=== PATIENT | female | born 1985 | race Caucasian/White ===

== ENCOUNTER 2017-08-12 09:55 | Emergency (ER) | payer SELFPAY ==
[2017-08-12 10:43] LABS: Basophils % (Auto) 0.5 % (0.0-1.8); Eosinophils % (Auto) 1.6 % (0.0-4.3); Hemoglobin 13.5 gm/dl (10.1-14.3); Mean Corpuscular HGB Conc 34 % (30-34); Mean Corpuscular Hemoglobin 30 pg (28-32); Mean Corpuscular Volume 89 fl (79-97); Platelet Count 160 K/mm3 (140-440); Red Cell Distribution Width 12.8 % (13.2-15.2); White Blood Count 9.7 K/mm3 (4.5-11.0)
[2017-08-12 19:37] LABS: Bilirubin,Urine NEG (Negative); Blood,Urine LG (Negative); Ketones,Urine NEG (Negative); Leukocyte Esterase,Urine MOD (Negative); Nitrite,Urine NEG (Negative); Urobilinogen,Urine < 2.0 mg/dL (<2.0)
[2017-08-12 19:38] LABS: RBC,Urine > 182.0 /HPF (0.0-6.0)
--- NOTE | 2017-08-12 21:05 | Emergency Department Report ---
ED Female HPI - General Chief complaint: Vaginal Bleeding Stated complaint: VAGINAL BLEEDING Time Seen by Provider: 08/12/17 20:53 Source: patient, RN notes reviewed Mode of arrival: Ambulatory Limitations: No Limitations - History of Present Illness Initial comments: This is a 32-year-old female, the patient is previously unknown to this provider , she reports that she is 3, para 2, last menstrual period is May 2016 , and she follows at a local outpatient clinic. Patient presents to the ER with a complaint of vaginal bleeding since August 10, she's been using 8 pads within the past 24 hours, denies irritative and obstructive urinary symptoms, apparently patient had an outpatient ultrasound done on August 10 which demonstrated no heart rate. Patient denies chest pain and shortness of breath. Her symptoms are constant, and do not have exacerbating or relieving factors. MD Complaint: vaginal bleeding, pelvic pain -: Gradual Location: suprapubic Severity: mild Quality: cramping Consistency: constant Improves with: none Worsens with: none Are you Now?: Yes Associated Symptoms: vaginal bleeding, abdominal pain - Related Data Sexually active: Yes Previous Rx's Medication Instructions Recorded Last Taken Type Misoprostol [Cytotec] 50 mcg PO Q6HR #2 tablet 08/12/17 Unknown Rx Allergies Allergy/AdvReac Type Severity Reaction Status Date / Time No Known Allergies Allergy Verified 08/12/17 10:14 ED Review of Systems ROS: Stated complaint: VAGINAL BLEEDING Other details as noted in HPI Constitutional: denies: fever Eyes: denies: vision change ENT: denies: epistaxis Respiratory: denies: cough Cardiovascular: denies: chest pain Gastrointestinal: denies: vomiting Genitourinary: abnormal menses. denies: dysuria Musculoskeletal: denies: back pain Skin: denies: lesions Neurological: denies: weakness Psychiatric: anxiety ED Past Medical Hx - Past Medical History Previous Medical History?: No - Surgical History Past Surgical History?: No - Social History Smoking Status: Former Smoker Substance Use Type: None - Medications Home Medications: Home Medications Medication Instructions Recorded Confirmed Last Taken Type Misoprostol [Cytotec] 50 mcg PO Q6HR #2 tablet 08/12/17 Unknown Rx ED Physical Exam - General Limitations: No Limitations General appearance: alert, in no apparent distress - Head Head exam: Present: atraumatic, normocephalic - Eye Eye exam: Present: normal appearance, EOMI. Absent: nystagmus - ENT ENT exam: Present: normal exam, normal orophraynx, mucous membranes moist, normal external ear exam - Neck Neck exam: Present: normal inspection, full ROM. Absent: tenderness, meningismus - Respiratory Respiratory exam: Present: normal lung sounds bilaterally. Absent: respiratory distress, wheezes, rales, rhonchi, stridor, chest wall tenderness, accessory muscle use, decreased breath sounds, prolonged expiratory - Cardiovascular Cardiovascular Exam: Present: regular rate, normal rhythm, normal heart sounds. Absent: bradycardia, tachycardia, irregular rhythm, systolic murmur, diastolic murmur, rubs, gallop - GI/Abdominal GI/Abdominal exam: Present: soft, normal bowel sounds. Absent: distended, tenderness, guarding, rebound, rigid, pulsatile mass - External exam: Present: normal external exam Speculum exam: Present: vaginal bleeding, other (products of conception noted coming through the cervix) Bi-manual exam: Present: normal bi-manual exam, uterine tenderness, other ( escorted by nurse dayne sage). Absent: adnexal tenderness, adnexal mass - Extremities Exam Extremities exam: Present: normal inspection, full ROM, normal capillary refill. Absent: tenderness, pedal edema, joint swelling - Back Exam Back exam: Present: normal inspection, full ROM. Absent: tenderness, CVA tenderness (R), CVA tenderness (L), muscle spasm, paraspinal tenderness, vertebral tenderness - Neurological Exam Neurological exam: Present: alert, oriented X3, normal gait, other (Extraocular movements intact. Tongue midline. No facial droop. Facial sensation intact to light touch in the V1, V2, V3 distribution bilaterally. 5 and 5 strength in 4 extremities.. Sensation is intact to light touch in 4 extremities.). Absent : motor sensory deficit - Psychiatric Psychiatric exam: Present: normal affect, normal mood - Skin Skin exam: Present: warm, dry, intact, normal color. Absent: rash ED Course Vital Signs 08/12/17 08/12/17 08/12/17 10:14 21:00 21:59 Temperature 99.6 F 98 F Pulse Rate 94 H 87 Respiratory 18 12 12 Rate Blood Pressure 111/72 Blood Pressure 115/62 [Left] O2 Sat by Pulse 99 Oximetry - Reevaluation(s) Reevaluation #1: 08/12/17 22:04 Differential diagnosis: Threatened miscarriage, inevitable miscarriage, retained products of conception Assessment and plan: 32-year-old female with vaginal bleeding, positive test, no intrauterine is identified on my transabdominal bedside ultrasound, found to be Rh+, patient has received a formal radiology transvaginal ultrasound, she is most likely splinting and miscarriage. We will reassess once her ultrasound has resulted. Reevaluation #2: 08/12/17 23:41 Patient remains hemodynamically stable, ultrasound demonstrates echogenic material, consistent with retained products of conception in the lower uterine segment and cervix. Viable intrauterine is not identified. Reevaluation #3: 08/12/17 23:49 The patient's case is presented to gynecology on-call, Dr. Espinosa, and he recommends Cytotec, 50 g for 2 doses. ED Medical Decision Making - Lab Data Result diagrams: 08/12/17 10:23 Critical care attestation.: If time is entered above; I have spent that time in minutes in the direct care of this critically ill patient, excluding procedure time. ED Disposition Clinical Impression: Miscarriage Disposition: DC-01 TO HOME OR SELFCARE Is pt being admited?: No Does the pt Need Aspirin: No Condition: Stable Instructions: Spontaneous Miscarriage (ED) Additional Instructions: Rest, and avoid heavy lifting. Avoid strenuous physical activity. Follow-up with a crop supervisor within 3-5 days, do not engage in sex until cleared by crop supervisor. Bleeding, cramping, tissue passage and clots are normal and expected, patient having an inevitable miscarriage/. Return to the ER right away with new pain, worsened pain, migration of pain, fevers, chills, lethargy, projectile vomiting, change in mental status, inability to tolerate liquid feeds. Take the medication as directed, this will assist and facilitate extrusion of products of conception. Descanse y evite levantar objetos pesados. Evite la actividad fsica extenuante. Seguimiento con un gineclogo dentro de 3-5 maravilla, no se involucran en el sexo hasta que sea aprobado por el gineclogo. Sangrado, calambres, paso de tejido y cogulos son normales y esperados, el paciente tiene un inevitable aborto / aborto. Regreso al ER de inmediato con dolor nuevo, dolor empeorado, migracin de dolor, fiebres, escalofros, letargo, vmitos de proyectiles, cambios en el estado mental, incapacidad para tolerar alimentos lquidos. Prescriptions: Misoprostol [Cytotec] 50 mcg PO Q6HR #2 tablet Referrals: PRIMARY CAREMD [Primary Care Provider] - 3-5 Days [facility] [Provider Group] - 3-5 Days [facility] [Provider Group] - 3-5 Days [facility] [Provider Group] - 3-5 Days
[2017-08-12 21:59] VITALS: BP 115/62
--- NOTE | 2017-08-12 23:08 | Ultrasound Report ---
FINAL REPORT PROCEDURE: US OB TRANSVAGINAL TECHNIQUE: Real-time transabdominal and transvaginal sonography of the uterus, placenta, amniotic fluid, adnexa, and fetus was performed with image documentation. Measurements were obtained to determine age/size. M-mode Doppler was used to document heartbeat. CPT 51221 and 21347 HISTORY: vag bleed COMPARISON: No prior studies are available for comparison. FINDINGS: Abnormal echogenic material is seen in the lower uterine segment and endocervical canal that may be due to retained products of conception. No viable IUP is seen. Fluid is seen in the lower cervical canal. Endometrial thickness is 1.2 cm in the fundus. Right ovary measures 2.9 x 1.6 x 2.1 cm. Left ovary measures 3.0 x 2.0 x 2.1 cm. Left ovary is a complex cyst measuring 1.7 cm. No free pelvic fluid is seen. No ectopic is seen. IMPRESSION: Probable in progress with retained products of conception in the lower uterine segment and cervix is seen. A viable IUP is not identified. Correlation with serial quantitative beta HCG levels is recommended.
--- NOTE | 2017-08-12 23:09 | Ultrasound Report ---
FINAL REPORT PROCEDURE: US OB \T\lt; = 14 WEEKS FETUS TECHNIQUE: Real-time transabdominal and transvaginal sonography of the uterus, placenta, amniotic fluid, adnexa, and fetus was performed with image documentation. Measurements were obtained to determine age/size. M-mode Doppler was used to document heartbeat. CPT 56173 and 02450 HISTORY: vag bleed COMPARISON: No prior studies are available for comparison. FINDINGS: Abnormal echogenic material is seen in the lower uterine segment and endocervical canal that may be due to retained products of conception. No viable IUP is seen. Fluid is seen in the lower cervical canal. Endometrial thickness is 1.2 cm in the fundus. Right ovary measures 2.9 x 1.6 x 2.1 cm. Left ovary measures 3.0 x 2.0 x 2.1 cm. Left ovary is a complex cyst measuring 1.7 cm. No free pelvic fluid is seen. No ectopic is seen. IMPRESSION: Probable in progress with retained products of conception in the lower uterine segment and cervix is seen. A viable IUP is not identified. Correlation with serial quantitative beta HCG levels is recommended.
== END 2017-08-13 00:12 | disposition home or self-care (01) ==
LOC: ED 09:55
DX: O03.9 Complete or unspecified spontaneous abortion without complication (principal); Z87.891 Personal history of nicotine dependence
CPT/HCPCS: 36415; 76801; 76817; 81001; 84702; 85025; 86850; 86900; 86901

== ENCOUNTER 2019-01-27 19:01 | Inpatient (IN) | payer OTHER ==
[2019-01-27 21:49] LABS: Hematocrit 31.8 % (30.3-42.9); Hemoglobin 10.6 gm/dl (10.1-14.3); Mean Corpuscular HGB Conc 33 % (30-34); Mean Corpuscular Hemoglobin 27 pg (28-32); Mean Corpuscular Volume 82 fl (79-97); Platelet Count 155 K/mm3 (140-440); Red Blood Count 3.88 M/mm3 (3.65-5.03); Red Cell Distribution Width 17.1 % (13.2-15.2)
[2019-01-27] MEDS ORDERED: LACTATED RINGERS 1,000 ML ONE (22:04)
[2019-01-27] MEDS ORDERED: PITOCin/NS 20 UNIT/1000ML DRIP 20,000 MILLIUNITS/1,000 ML BAG IV ONE (22:05)
[2019-01-27] MEDS ORDERED: XYLOCAINE 2% INFILTRATI ONE (22:19)
[2019-01-27] MEDS ORDERED: MINERAL OIL PO PRN (22:19)
[2019-01-27] MEDS ORDERED: SUBLIMAZE IV PRN (22:19)
[2019-01-27] MEDS ORDERED: BRETHINE IVP PRN (22:19)
[2019-01-27] MEDS ORDERED: BRETHINE SUB-Q PRN (22:19)
[2019-01-27] MEDS ORDERED: NARCAN 0.4 MG/1 ML IV PRN (22:19)
--- NOTE | 2019-01-27 22:24 | History and Physical Report ---
History of Present Illness Date of examination: 01/27/19 Date of admission: 01/27/19 22:01 Chief complaint: Intense Labor Pains History of present illness: 33 yo Fe , TRENT 02/02/2019 (LMP), 39 weeks 1 day, presents in spontaneous labor. O positive, Rubella immune, GBS Negative. Pt initiated early care with [facility] at 9 weeks (records available; reviewed). Pt taking FeS04 325mg PO BID for anemia. Early complicated with N&V treated with Promethazine. Pt brother has Down Syndrome. Declined Screening. AFP Negative. 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 denies: smoking, alcohol abuse, prescription drug abuse, IV drug use - Obstetrical History Expected Date of Delivery: 02/02/19 Actual Gestation: 39 Week(s) 1 Day(s) : 4 Para: 2 Hx # Term Pregnancies: 2 Number of Pregnancies: 0 Spontaneous Abortions: 1 Induced : 0 Number of Living Children: 2 #1 Gender: Male year: 2,005 Method of Delivery: Vaginal Gestational age at delivery: 40 Complications: none #2 Infant Gender: Male year: 2,013 Method of Delivery: Vaginal Gestational age at delivery: 40 Complications: none #3 year: 2,017 (SAB ) Gestational age at delivery: 14 Medications and Allergies Allergies Allergy/AdvReac Type Severity Reaction Status Date / Time No Known Allergies Allergy Verified 08/12/17 10:14 Home Medications Medication Instructions Recorded Confirmed Last Taken Type No Known Home Medications [No 01/27/19 01/27/19 Unknown History Reported Home Medications] Review of Systems Eyes: normal appearance Cardiovascular: no chest pain, no shortness of breath Respiratory: no shortness of breath Breasts: normal Gastrointestinal: abdominal pain (Contractions), no nausea, no vomiting, no diarrhea, no constipation Genitourinary: normal appearance, contractions, no vaginal bleeding, no leakage of fluid, no genital sores Integumentary: no rash, no sores, no lesions Neurological: other (Denies) Psychiatric: other (Denies) - Vital Signs Vital signs: Vital Signs Temp Resp 98.6 F 20 01/27/19 20:39 01/27/19 20:39 Temp Pulse Resp BP Pulse Ox 96.8 F L 67 18 117/71 01/27/19 21:55 01/27/19 21:55 01/27/19 21:55 01/27/19 21:55 - Physical Exam Cardiovascular: Regular rate, Normal S1, Normal S2, No murmurs Lungs: Positive: Clear to auscultation, Normal air movement Abdomen: Positive: normal appearance, soft, normal bowel sounds. Negative: distention Genitourinary (Female): Positive: normal external genitalia, normal perenium Vulva: both: normal Vagina: Positive: normal moisture Uterus: Positive: enlarged (Gravid) Anus/Rectum: Positive: normal perianal skin - Obstetrical FHR: category 1 Uterine Contraction Monitor Mode: External Cervical Dilatation: 6 Cervical Effacement Percentage: 90 station: -1 Uterine Contraction Pattern: Regular Uterine Tone Measurement Phase: Resting Uterine Contraction Intensity: Mild Results Result Diagrams: 01/27/19 21:30 Abnormal lab results 01/27/19 Range/Units 21:30 MCH 27 L (28-32) pg RDW 17.1 H (13.2-15.2) % All other labs normal. Assessment and Plan A: Term IUP at 39w1d GBS Negative Category 1 tracing Active labor P: Admit to L&D; Routine labor orders Pitocin augmentation May have IV pain med/epidural PRN Anticipate
[2019-01-27] MEDS ORDERED: LACTATED RINGERS 1,000 ML IV SCH (23:00)
[2019-01-27] MEDS ORDERED: PITOCin/NS 30 UNIT/500ML 30 UNITS/500 ML BAG IV SCH (23:00)
[2019-01-27] MEDS ORDERED: PITOCin/NS 20 UNIT/1000ML DRIP 20 UNITS/1,000 ML BAG IV SCH (23:00)
[2019-01-27] MEDS ORDERED: NARCAN 2 MG/2 ML IV PRN (23:28)
--- NOTE | 2019-01-27 23:30 | Anesthesia Day of Surgery ---
Anesthesia Day of Surgery - Day of Surgery Patient Examined: Yes Patient H&P Reviewed: Yes Patient is NPO: Yes Beta Blockers: No Cardiac Clearance: No Pulmonary Clearance: No Russell's Test: N/A
--- NOTE | 2019-01-27 23:30 | Anesthesia Consultation ---
Anesthesia Consult and Med Hx - Airway Anesthetic Teeth Evaluation: Good, Partials ROM Head & Neck: Adequate Mental/Hyoid Distance: Adequate Mallampati Class: Class I Intubation Access Assessment: Good - Pulmonary Exam CTA: Yes - Cardiac Exam Cardiac Exam: RRR - Pre-Operative Health Status ASA Pre-Surgery Classification: ASA2 Proposed Anesthetic Plan: Epidural - Pulmonary Hx Asthma: No - Cardiovascular System Hx Hypertension: No - Central Nervous System Hx Seizures: No Hx Psychiatric Problems: No - Endocrine Hx Renal Disease: No Hx Hypothyroidism: No Hx Hyperthyroidism: No - Hematic Hx Anemia: No Hx Sickle Cell Disease: No - Other Systems Hx Alcohol Use: No
[2019-01-27] MEDS ORDERED: MARCAINE 0.25% INFILTRATI ONE (23:33)
[2019-01-27] MEDS ORDERED: fentaNYL-BUPIV 2 MCG/ML-0.125% 200 MCG/100 ML BAG EPIDURAL SCH (23:45)
[2019-01-28] MEDS ORDERED: BENADRYL PO PRN (04:14)
[2019-01-28] MEDS ORDERED: TUCKS PAD TP PRN (04:14)
[2019-01-28] MEDS ORDERED: MILK OF MAGNESIA PO PRN (04:14)
[2019-01-28] MEDS ORDERED: TYLENOL PO PRN (04:14)
[2019-01-28] MEDS ORDERED: PHENERGAN PO PRN (04:14)
[2019-01-28] MEDS ORDERED: LANSINOH TP PRN (04:14)
[2019-01-28] MEDS ORDERED: ZOFRAN IV PRN (04:14)
[2019-01-28] MEDS ORDERED: DULCOLAX PR PRN (04:14)
--- NOTE | 2019-01-28 04:21 | Procedure Note ---
OB Delivery Note - Delivery Date of Delivery: 01/28/19 (04:01) Surgeon: SANIA WOMACK (KATHIE) Estimated blood loss: 100cc - Vaginal Delivery presentation: vertex Delivery position: OA Intrapartum events: none Delivery induction: none Delivery augmentation: rupture of membranes, pitocin Delivery monitor: external FHT, external uterine Route of delivery: (04:01) Delivery placenta: spontaneous (04:06) Delivery cord: 3 umbilical vessels, other (Body cord x1) Episiotomy: none Delivery laceration: none Anesthesia: epidural Delivery comments: viable female infant IGNACIO presentation, loose body cord x1, over intact perineum at 04:01. Vigorous infant placed [id number] on mothers abdomen. Delayed cord clamping; cut by myself. Cord blood collected pre protocol. Spontaneous hernandez delivery of intact placenta, 3VC at 04:06. Discarded. FF@U- 2, bleeding small. No tears or lacerations. and mother left in stable condition in L&D. EBL 100cc. - A at 1 minute: 8 at 5 minutes: 9 Gender: Female (5lbs 13oz, 2627g, 17")
[2019-01-28] MEDS ORDERED: SODIUM CHLORIDE FLUSH SYRINGE 10 ML IV PRN (05:00)
[2019-01-28] MEDS: NORCO 5/325 PO PRN ×2 (06:38→18:37)
[2019-01-28 14:47] LABS: Hematocrit 29.6 % (30.3-42.9); Hemoglobin 9.8 gm/dl (10.1-14.3)
[2019-01-28] MEDS: MOTRIN PO SCH ×3 (18:17→23:26)
[2019-01-29] MEDS: MOTRIN PO SCH (05:22)
[2019-01-29] MEDS ORDERED: BOOSTRIX IM ONE (06:00)
--- NOTE | 2019-01-29 09:18 | Progress Note ---
Assessment and Plan A: day 1 S/P spontaneous vaginal delivery. Anemia secondary to and blood loss. P: Discharge patient home today when baby is able to go. discharge instructions and warning signs discussed in detail with patient. Advised patient to avoid intercourse, lifting and heavy housework, driving. Advised patient to continue taking her vitamins and iron supplements at home. Advised patient to call OB clinic Thursday and obtain follow up appointment for 6 weeks. Patient voiced understanding of all instructions. Subjective - Subjective Date of service: 01/29/19 Principal diagnosis: day 1 S/P spontaneous vaginal delivery Interval history: day 1 S/P spontaneous vaginal delivery. Doing well; patient requests discharge today. Patient reports small amount of lochia. She is voiding without difficulty, ambulating well, tolerating a regular diet without nausea or vomiting. Patient denies headache, chest pain, cough, shortness of breath, leg pain, abdominal pain, heavy vaginal bleeding, or any other problems. Patient reports: appetite normal, voiding normally, pain well controlled, flatus, ambulating normally, no dizzy ambulation, no nauseated [place]: doing well Objective - Vital Signs Latest vital signs: Vital Signs Temp Pulse Resp BP BP Pulse Ox 01/29/19 08:48 98.5 F 70 18 126/83 96 01/29/19 05:22 20 01/29/19 01:48 98.4 F 77 18 119/72 96 01/28/19 23:26 18 01/28/19 18:37 18 01/28/19 16:00 98.2 F 79 20 112/80 Intake and Output 01/28/19 01/29/19 01/29/19 23:59 07:59 15:59 Intake Total 640 Output Total 1000 Balance -360 Intake: Oral 640 Output: Urine 1000 Void 1000 Other: Total, Intake Amount 320 Total, Output Amount 1000 # Voids Void 1 - Exam Cardiovascular: Present: Regular rate, Normal S1, Normal S2 Lungs: Present: Clear to auscultation Abdomen: Present: normal appearance, soft. Absent: distention, tenderness, guarding, rigidity Uterus: Present: normal, firm, fundal height below umbilicus. Absent: bogginess, tenderness Extremities: Present: normal. Absent: tenderness, edema - Labs Labs: Abnormal lab results 01/28/19 Range/Units 14:33 Hgb 9.8 L (10.1-14.3) gm/dl Hct 29.6 L (30.3-42.9) %
--- NOTE | 2019-01-29 09:21 | Discharge Summary ---
Providers - Providers Date of Admission: 01/27/19 22:01 Date of discharge: 01/29/19 Attending physician: HUGO CHICAS MD Primary care physician: HUGO CHICAS MD Hospitalization Reason for admission: active labor Delivery: Episiotomy: none Laceration: none Other procedures: none complications: none Discharge diagnosis: IUP at term delivered [place] baby: female Pertinent studies: Labs Hospital course: Normal hospital course. Condition at discharge: Good Disposition: DC-01 TO HOME OR SELFCARE - Discharge Diagnoses (1) Term delivered Status: Acute (2) Anemia due to blood loss Status: Acute Plan - Provider Discharge Summary Activity: routine, no sex for 6 weeks, no heavy lifting 4 weeks, no strenuous exercise Diet: routine Instructions: routine Additional instructions: Continue taking your vitamins and iron supplements at home. Call your doctor immediately for: * Fever > 100.5 * Heavy vaginal bleeding ( >1 pad per hour) * Severe persistent headache * Shortness of breath * Reddened, hot, painful area to leg or breast - Follow up plan Follow up: HUGO CHICAS MD [Primary Care Provider] - 6 Weeks
[2019-01-29] MEDS ORDERED: FEOSOL PO SCH (10:00)
[2019-01-29 17:11] VITALS: BP 136/90
== END 2019-01-29 17:29 | disposition home or self-care (01) | DRG 807 ==
LOC: TRG 19:01 → LD 22:01 → TRG 22:01 → OB 01-28 06:12
PROVIDERS: ADMIT Obstetrics & Gynecology; ATTEND Obstetrics & Gynecology
PROC: 10E0XZZ Delivery of Products of Conception, External Approach (ICD-10-PCS; principal; 2019-01-28)
PROC: 3E0R3BZ Introduction of Anesthetic Agent into Spinal Canal, Percutaneous Approach (ICD-10-PCS; 2019-01-28)
PROC: 00HU33Z Insertion of Infusion Device into Spinal Canal, Percutaneous Approach (ICD-10-PCS; 2019-01-28)
PROC: 3E0234Z Introduction of Serum, Toxoid and Vaccine into Muscle, Percutaneous Approach (ICD-10-PCS; 2019-01-29)
DX: O69.89X0 Labor and delivery complicated by other cord complications, not applicable or unspecified (principal); Z37.0 Single live birth; Z3A.39 39 weeks gestation of pregnancy; O99.02 Anemia complicating childbirth; D50.0 Iron deficiency anemia secondary to blood loss (chronic); Z23 Encounter for immunization
CPT/HCPCS: 36415; 85014; 85018; 85027; 86592; 86850; 86900; 86901; 90471; 90715; G0378; J2590; J7120